=== PATIENT | female | born 1995 | race Caucasian/White ===

== ENCOUNTER → 2020-10-14 | Outpatient (REF) | payer OTHER | LOC: M SFHCADAM 17:07 | PROVIDERS: ATTEND Physician Assistant Medical | DX: Z12.4 Encounter for screening for malignant neoplasm of cervix (principal) ==

== ENCOUNTER → 2021-05-23 | Outpatient (REF) | payer OTHER ==
[2021-05-24 18:09] LABS: GC DNA AMPLIFICATION NEGATIVE (NEGATIVE)
== END ==
LOC: M SFHCADAM 14:48
PROVIDERS: ATTEND Physician Assistant Medical
DX: Z71.1 Person with feared health complaint in whom no diagnosis is made (principal); E66.01 Morbid (severe) obesity due to excess calories; R60.1 Generalized edema

== ENCOUNTER → 2021-05-24 | Outpatient (REF) | payer OTHER ==
[2021-05-24 13:32] LABS: HEMATOCRIT 41.7 % (36.0-47.0); MEAN CORPUSCULAR HGB CONC 33.6 g/dl (32.0-36.5); MEAN CORPUSCULAR VOLUME 86.5 fl (80.0-96.0); PLATELET COUNT, AUTOMATED 210 10^3/uL (150-450); RED BLOOD COUNT 4.82 10^6/uL (4.00-5.40); WHITE BLOOD COUNT 6.6 10^3/uL (4.0-10.0)
[2021-05-24 14:22] LABS: ALT/SGPT 90 U/L (12-78); BILIRUBIN,TOTAL 0.4 MG/DL (0.2-1.0); BLOOD UREA NITROGEN 11 MG/DL (7-18); CALCIUM LEVEL 9.2 MG/DL (8.5-10.1); CARBON DIOXIDE LEVEL 26 MEQ/L (21-32); CHLORIDE LEVEL 106 MEQ/L (98-107); CREATININE FOR GFR 0.76 MG/DL (0.55-1.30); GLOMERULAR FILTRATION RATE > 60.0 (>60); GLUCOSE, FASTING 93 MG/DL (70-100); POTASSIUM SERUM 4.3 MEQ/L (3.5-5.1); SODIUM LEVEL 138 MEQ/L (136-145); TRIGLYCERIDES LEVEL 167 MG/DL (<150)
[2021-05-24 14:23] LABS: ALBUMIN 4.2 GM/DL (3.2-5.2); CHOLESTEROL LEVEL 217 MG/DL (<200); CHOLESTEROL RISK RATIO 3.013 (<5); HDL CHOLESTEROL 72 MG/DL (>40); LDL CHOLESTEROL 112 MG/DL (<100); NON-HDL-C 145 MG/DL; TOTAL 25(OH) VITAMIN D 23.6 NG/ML (30.0-100.0); TOTAL PROTEIN 7.4 GM/DL (6.4-8.2)
[2021-05-25 12:39] LABS: GC DNA AMPLIFICATION NEGATIVE (NEGATIVE)
== END ==
LOC: M SFHCADAM 08:15
PROVIDERS: ATTEND Physician Assistant Medical
DX: Z71.1 Person with feared health complaint in whom no diagnosis is made (principal); E66.01 Morbid (severe) obesity due to excess calories; R60.1 Generalized edema

== ENCOUNTER → 2021-06-13 | Outpatient (CLI) | payer OTHER | LOC: M RAD 08:23 | PROVIDERS: ATTEND Physician Assistant Medical | DX: R74.8 Abnormal levels of other serum enzymes (principal); K76.0 Fatty (change of) liver, not elsewhere classified ==

== ENCOUNTER → 2021-06-15 | Outpatient (REF) | payer OTHER ==
[2021-06-15 13:51] LABS: ALBUMIN 4.2 GM/DL (3.2-5.2); ALT/SGPT 161 U/L (12-78); BILIRUBIN,TOTAL 0.5 MG/DL (0.2-1.0); BLOOD UREA NITROGEN 14 MG/DL (7-18); CALCIUM LEVEL 9.9 MG/DL (8.5-10.1); CARBON DIOXIDE LEVEL 26 MEQ/L (21-32); CHLORIDE LEVEL 108 MEQ/L (98-107); CREATININE FOR GFR 0.77 MG/DL (0.55-1.30); GLOMERULAR FILTRATION RATE > 60.0 (>60); GLUCOSE, FASTING 97 MG/DL (70-100); POTASSIUM SERUM 4.3 MEQ/L (3.5-5.1); SODIUM LEVEL 140 MEQ/L (136-145); TOTAL PROTEIN 7.7 GM/DL (6.4-8.2)
[2021-06-15 14:01] LABS: HEPATITIS B SURFACE ANTIGEN NEGATIVE (NEGATIVE)
[2021-06-15 14:29] LABS: HEPATITIS C VIRUS ABY INDEX 0.1 INDEX (<0.8)
[2021-06-15 14:31] LABS: HEPATITIS A ANTIBODY IGM NEGATIVE (NEGATIVE); HEPATITIS B CORE ANTIBODY IGM NEGATIVE (NEGATIVE)
== END ==
LOC: M SFHCADAM 07:51
PROVIDERS: ATTEND Physician Assistant Medical
DX: R74.8 Abnormal levels of other serum enzymes (principal)

== ENCOUNTER → 2021-06-21 | Outpatient (CLI) | payer OTHER ==
[~2021-06-21] MED LIST: ISOVUE-370 76% 100ML VIAL As Ordered ONE
--- NOTE | 2021-06-21 23:01 | REP ---
INDICATION: ABN LIVER IMAG ON US. COMPARISON: None TECHNIQUE: Axial pre and postcontrast images of the abdomen using 100 cc Isovue 370 intravenous contrast material. . This CT examination was performed using the following dose reduction techniques: Automated exposure control, adjustment of mA and/or kv according to the patient's size, and the use of iterative reconstruction technique. FINDINGS: Liver demonstrates significant diffuse fatty infiltration with a 1.1 cm round nonspecific area along the periphery of the right lobe (series 301; image 17) and a similar appearing 1.2 cm area in the lateral left lobe (series 301; image 39). These findings are nonspecific but appear benign and likely represent small focal areas of fat sparing. Spleen, pancreas, gallbladder, bilateral adrenal glands and kidneys are normal. Visualized portions of the enteric system are normal.. No ascites. No free air. No intraperitoneal or retroperitoneal adenopathy. Abdominal aorta and vasculature appear normal. Musculoskeletal structures are intact and without acute osseous abnormality. IMPRESSION: Diffuse significant hepatosteatosis with presumed small focal areas of fat sparing similar to findings on prior ultrasound. <Electronically signed by Ranjith Cuello > 06/21/21 [id number]
== END ==
LOC: M RAD 16:46
PROVIDERS: ATTEND Physician Assistant Medical
DX: R93.2 Abnormal findings on diagnostic imaging of liver and biliary tract (principal); K76.0 Fatty (change of) liver, not elsewhere classified
CPT/HCPCS: 74170; Q9967

== ENCOUNTER → 2021-09-26 | Outpatient (REF) | payer OTHER ==
[2021-09-26 14:24] LABS: ALBUMIN 4.3 GM/DL (3.2-5.2); ALT/SGPT 47 U/L (12-78); BILIRUBIN,TOTAL 0.8 MG/DL (0.2-1.0); BLOOD UREA NITROGEN 14 MG/DL (7-18); CALCIUM LEVEL 9.7 MG/DL (8.5-10.1); CARBON DIOXIDE LEVEL 27 MEQ/L (21-32); CHLORIDE LEVEL 107 MEQ/L (98-107); CREATININE FOR GFR 0.96 MG/DL (0.55-1.30); GLOMERULAR FILTRATION RATE > 60.0 (>60); GLUCOSE, FASTING 97 MG/DL (70-100); POTASSIUM SERUM 4.4 MEQ/L (3.5-5.1); SODIUM LEVEL 140 MEQ/L (136-145); TOTAL PROTEIN 7.9 GM/DL (6.4-8.2)
== END ==
LOC: M SFHCADAM 08:06
PROVIDERS: ATTEND Physician Assistant Medical
DX: K76.0 Fatty (change of) liver, not elsewhere classified (principal); R79.89 Other specified abnormal findings of blood chemistry; E66.01 Morbid (severe) obesity due to excess calories

== ENCOUNTER → 2021-12-02 | Outpatient (REF) | payer OTHER | LOC: M SFHCWAGY 08:34 | PROVIDERS: ATTEND Physician Assistant Medical | DX: Z12.4 Encounter for screening for malignant neoplasm of cervix (principal); R87.610 Atypical squamous cells of undetermined significance on cytologic smear of cervix (ASC-US) | CPT/HCPCS: 87624; G0123 ==

== ENCOUNTER → 2022-08-16 | Outpatient (REF) | payer OTHER ==
[2022-08-16 14:29] LABS: BASO % 0.4 % (0.0-1.0); EOS # 0.2 10^3/uL (0.0-0.5); HEMATOCRIT 39.5 % (36.0-47.0); LYMPH # 1.7 10^3/uL (1.5-5.0); MEAN CORPUSCULAR HEMOGLOBIN 28.6 pg (27.0-33.0); MEAN CORPUSCULAR HGB CONC 32.9 g/dl (32.0-36.5); MEAN CORPUSCULAR VOLUME 86.8 fl (80.0-96.0); MONO # 0.5 10^3/uL (0.0-0.8); MONO % 9.6 % (2.0-8.0); NEUTROPHILS # 2.6 10^3/uL (1.5-8.5); NEUTROPHILS % 51.8 % (36.0-66.0); PLATELET COUNT, AUTOMATED 233 10^3/uL (150-450); RED BLOOD COUNT 4.55 10^6/uL (4.00-5.40); WHITE BLOOD COUNT 4.9 10^3/uL (4.0-10.0)
[2022-08-16 15:15] LABS: ALT/SGPT 24 U/L (12-78); BILIRUBIN,TOTAL 0.6 MG/DL (0.2-1.0); BLOOD UREA NITROGEN 11 MG/DL (7-18); CALCIUM LEVEL 9.2 MG/DL (8.5-10.1); CARBON DIOXIDE LEVEL 25 MEQ/L (21-32); CHLORIDE LEVEL 111 MEQ/L (98-107); CREATININE FOR GFR 0.76 MG/DL (0.55-1.30); GLOMERULAR FILTRATION RATE > 60.0 (>60); GLUCOSE, FASTING 86 MG/DL (70-100); POTASSIUM SERUM 3.8 MEQ/L (3.5-5.1); SODIUM LEVEL 141 MEQ/L (136-145); TOTAL PROTEIN 7.4 GM/DL (6.4-8.2)
[2022-08-16 16:00] LABS: TOTAL 25(OH) VITAMIN D 29.6 NG/ML (30.0-100.0)
== END ==
LOC: M SFHCADAM 11:24
PROVIDERS: ATTEND Physician Assistant Medical
DX: F32.2 Major depressive disorder, single episode, severe without psychotic features (principal); F41.0 Panic disorder [episodic paroxysmal anxiety]; E55.9 Vitamin D deficiency, unspecified

== ENCOUNTER 2023-08-04 14:26 | Inpatient (IN) | payer BC, OTHER ==
[~2023-08-04] VITALS: Ht 162.6 cm; Wt 83.9 kg
[2023-08-04 15:44] LABS: MEAN CORPUSCULAR HEMOGLOBIN 28.6 pg (27.0-33.0); MEAN CORPUSCULAR HGB CONC 35.1 g/dl (32.0-36.5); MEAN CORPUSCULAR VOLUME 81.3 fl (80.0-96.0); PLATELET COUNT, AUTOMATED 313 10^3/uL (150-450); RED BLOOD COUNT 4.55 10^6/uL (4.00-5.40); WHITE BLOOD COUNT 12.2 10^3/uL (4.0-10.0)
[2023-08-04 16:07] LABS: ETHYL ALCOHOL (ETHANOL) < 0.003 % (0.000-0.010)
[2023-08-04 16:08] LABS: ACETAMINOPHEN LEVEL < 2.0 UG/ML (10.0-20.0); ALBUMIN 4.6 G/DL (3.2-5.2); ALKALINE PHOSPHATASE 63 U/L (46-116); ALT/SGPT 15 U/L (7.0-40); AST/SGOT 14 U/L (<34); BILIRUBIN,DIRECT 0.2 MG/DL (<0.4); BILIRUBIN,TOTAL 0.5 MG/DL (0.3-1.2); BLOOD UREA NITROGEN 12 MG/DL (9-23); CALCIUM LEVEL 9.3 MG/DL (8.5-10.1); CARBON DIOXIDE LEVEL 20 MMOL/L (20-31); CHLORIDE LEVEL 111 MMOL/L (98-107); GLOMERULAR FILTRATION RATE > 60.0 (>60); GLUCOSE, FASTING 122 MG/DL (60-100); POTASSIUM SERUM 3.6 MMOL/L (3.5-5.1); SALICYLATE LEVEL < 3.0 MG/DL (<30); SODIUM LEVEL 143 MMOL/L (136-145); TOTAL PROTEIN 8.2 G/DL (5.7-8.2)
[2023-08-04 16:10] LABS: THYROID STIMULATING HORMONE 0.877 uIU/ML (0.55-4.78)
[2023-08-04 16:19] LABS: HCG, SERUM QUALITATIVE NEGATIVE (NEGATIVE)
[2023-08-04] MEDS ORDERED: LORazepam 2 MG/ML 1ML VIAL IM STA ×2 (16:22→21:39)
[2023-08-04] MEDS ORDERED: OLANZapine INTRAMUSCULAR 10MG VIAL IM ONE ×2 (16:25→23:00)
[2023-08-04 18:20] LABS: AMPHETAMINES LEVEL URINE NEGATIVE (NEGATIVE); BARBITURATES URINE NEGATIVE (NEGATIVE); COCAINE METABOLITE URINE NEGATIVE (NEGATIVE); METHADONE URINE NEGATIVE (NEGATIVE)
[2023-08-04 18:21] LABS: OPIATES URINE NEGATIVE (NEGATIVE); PHENCYCLIDINE URINE NEGATIVE (NEGATIVE)
[2023-08-04 18:24] LABS: BENZODIAZEPINES URINE POSITIVE (NEGATIVE); CANNABINOIDS URINE POSITIVE (NEGATIVE)
[2023-08-04] MEDS ORDERED: NORE0.353 PO (19:10)
[2023-08-04] MEDS ORDERED: HOME MED LIST COMPLETE! XX SCH (19:10)
[2023-08-04] MEDS ORDERED: BUPR75TA5 PO (19:10)
[2023-08-04] MEDS ORDERED: ZOLO100T PO (19:10)
[2023-08-05] MEDS ORDERED: OLANZapine INTRAMUSCULAR 10MG VIAL IM ONE (06:05)
[2023-08-05] MEDS ORDERED: LORazepam 2 MG TAB PO STA (13:32)
[2023-08-05] MEDS ORDERED: OLANZapine ORAL DISINTEGRATING TAB 5MG PO ONE (13:35)
[2023-08-05] MEDS: OLANZapine ORAL DISINTEGRATING TAB 5MG PO PRN (19:25)
[2023-08-05] MEDS: LORazepam 1 MG TAB PO PRN (19:25)
[2023-08-06] MEDS ORDERED: UNRESOLVED PATIENT OWN MED ORDER XX SCH (00:01)
[2023-08-06] MEDS: LORazepam 1 MG TAB PO PRN ×2 (03:36→11:02)
[2023-08-06] MEDS: OLANZapine ORAL DISINTEGRATING TAB 5MG PO PRN ×2 (03:36→11:03)
[2023-08-06] MEDS ORDERED: SERTRALINE 100 MG TAB PO ONE (09:00)
[2023-08-06 18:03] VITALS: BP 131/86; TEMP 98.6; O2SAT 98
[2023-08-06] MEDS: SERTRALINE 100 MG TAB PO SCH (18:09)
[2023-08-06] MEDS ORDERED: HALOPERIDOL 5MG/ML 1ML VIAL IM STA (19:00)
[2023-08-06] MEDS ORDERED: LORazepam 2 MG/ML 1ML VIAL IM STA (19:00)
[2023-08-06] MEDS ORDERED: diphenhydrAMINE 50MG/ML VIAL IM STA (19:00)
[2023-08-06 19:45] VITALS: BP 127/75; TEMP 97.6; O2SAT 96
[2023-08-06 20:00] VITALS: BP 121/75; TEMP 97.3; O2SAT 96
[2023-08-06 20:15] VITALS: BP 120/59; TEMP 97.3; O2SAT 94
[2023-08-06 20:30] VITALS: BP 122/71; TEMP 97.3; O2SAT 94
[2023-08-06 20:45] VITALS: BP 109/63; TEMP 97.3; O2SAT 94
[2023-08-06] MEDS ORDERED: LORazepam 1 MG TAB PO ONE (22:00)
[2023-08-06] MEDS ORDERED: OLANZapine ORAL DISINTEGRATING TAB 5MG PO ONE (22:00)
[2023-08-07] MEDS: buPROPion 75 MG TAB PO SCH (09:00)
[2023-08-07] MEDS ORDERED: NORETHINDRONE 0.35 MG PO SCH (09:00)
[2023-08-07] MEDS: SERTRALINE 100 MG TAB PO SCH (09:34)
[2023-08-07] MEDS: OLANZapine 2.5MG TABLET PO SCH ×2 (10:27→21:00)
[2023-08-07] MEDS ORDERED: LORazepam 2 MG TAB PO ONE (11:00)
[2023-08-07] MEDS ORDERED: diphenhydrAMINE 50MG CAP PO ONE (11:00)
[2023-08-07] MEDS: NICOTINE 7 MG/24 HR TRANSDERMAL TD PRN (11:35)
[2023-08-07 11:40] VITALS: BP 120/74; TEMP 97.8; O2SAT 97
[2023-08-07 11:45] VITALS: BP 120/74; TEMP 97.8; O2SAT 97
[2023-08-07 12:10] VITALS: BP 112/67; TEMP 97.4
[2023-08-07] MEDS ORDERED: OLANZapine ORAL DISINTEGRATING TAB 5MG PO PRN (13:30)
[2023-08-08 06:25] VITALS: BP 129/87; TEMP 98.1; O2SAT 97
[2023-08-08] MEDS ORDERED: LORazepam 2 MG TAB PO STA (08:59)
[2023-08-08] MEDS ORDERED: diphenhydrAMINE 50MG CAP PO STA (08:59)
[2023-08-08] MEDS: LORazepam 1 MG TAB PO SCH ×3 (09:00→21:40)
[2023-08-08] MEDS: SERTRALINE 100 MG TAB PO SCH (09:07)
[2023-08-08] MEDS: buPROPion 75 MG TAB PO SCH (09:07)
[2023-08-08 16:12] VITALS: BP 112/78; TEMP 97.9; O2SAT 99
[2023-08-09 06:20] VITALS: BP 129/85; TEMP 98.7; O2SAT 100
[2023-08-09] MEDS: SERTRALINE 100 MG TAB PO SCH (08:38)
[2023-08-09] MEDS: buPROPion 75 MG TAB PO SCH (08:38)
[2023-08-09] MEDS: LORazepam 1 MG TAB PO SCH ×3 (08:38→22:02)
[2023-08-09] MEDS: NICOTINE 7 MG/24 HR TRANSDERMAL TD PRN (15:55)
[2023-08-09 18:20] VITALS: BP 120/86; TEMP 97.8; O2SAT 100
[2023-08-10 06:57] VITALS: BP 146/78; TEMP 97.3; O2SAT 95
[2023-08-10] MEDS: buPROPion 75 MG TAB PO SCH (07:47)
[2023-08-10] MEDS: LORazepam 1 MG TAB PO SCH ×3 (07:47→22:18)
[2023-08-10] MEDS: NICOTINE 7 MG/24 HR TRANSDERMAL TD PRN (07:47)
[2023-08-10] MEDS: SERTRALINE 100 MG TAB PO SCH (07:47)
[2023-08-10 18:39] VITALS: BP 127/80; TEMP 98.1
[2023-08-11 06:33] VITALS: BP 127/90; TEMP 97.7; O2SAT 99
[2023-08-11] MEDS: NICOTINE 7 MG/24 HR TRANSDERMAL TD PRN (09:10)
[2023-08-11] MEDS: SERTRALINE 100 MG TAB PO SCH (09:11)
[2023-08-11] MEDS: buPROPion 75 MG TAB PO SCH (09:11)
[2023-08-11] MEDS: LORazepam 1 MG TAB PO SCH ×3 (09:12→20:50)
[2023-08-11 18:10] VITALS: BP 114/75; TEMP 98.7; O2SAT 96
[2023-08-12 05:52] VITALS: BP 132/79; TEMP 98.4; O2SAT 96
[2023-08-12] MEDS: DROSPIRENONE PO SCH (09:51)
[2023-08-12] MEDS: ETHINYL ESTRADIOL PO SCH (09:51)
[2023-08-12] MEDS: buPROPion 75 MG TAB PO SCH (09:53)
[2023-08-12] MEDS: SERTRALINE 100 MG TAB PO SCH (09:53)
[2023-08-12] MEDS: LORazepam 1 MG TAB PO SCH ×3 (09:53→21:59)
[2023-08-12] MEDS: NICOTINE 7 MG/24 HR TRANSDERMAL TD PRN (09:54)
[2023-08-12 18:00] VITALS: BP 129/84; TEMP 98; O2SAT 99
[2023-08-13 06:37] VITALS: BP 150/70; TEMP 97.7; O2SAT 96
[2023-08-13] MEDS: LORazepam 1 MG TAB PO SCH (08:31)
[2023-08-13] MEDS: ETHINYL ESTRADIOL PO SCH (08:31)
[2023-08-13] MEDS: DROSPIRENONE PO SCH (08:31)
[2023-08-13] MEDS: buPROPion 75 MG TAB PO SCH (08:31)
[2023-08-13] MEDS: SERTRALINE 100 MG TAB PO SCH (08:31)
[2023-08-13] MEDS: NICOTINE 7 MG/24 HR TRANSDERMAL TD PRN (08:32)
[2023-08-13] MEDS ORDERED: LORazepam 1 MG TAB PO PRN (10:05)
[2023-08-13 18:10] VITALS: BP 125/83; TEMP 97.5; O2SAT 95
[2023-08-14 06:39] VITALS: BP 126/83; TEMP 96.7; O2SAT 97
[2023-08-14] MEDS ORDERED: hydrOXYzine 50 MG TAB PO PRN (09:35)
[2023-08-14] MEDS: ETHINYL ESTRADIOL PO SCH (09:50)
[2023-08-14] MEDS: buPROPion 75 MG TAB PO SCH (09:50)
[2023-08-14] MEDS: DROSPIRENONE PO SCH (09:50)
[2023-08-14] MEDS: SERTRALINE 100 MG TAB PO SCH (09:51)
[2023-08-14] MEDS ORDERED: LORazepam 0.5 MG TAB PO ONE (10:00)
[2023-08-14] MEDS: busPIRone 5 MG TAB PO SCH ×2 (11:36→21:13)
[2023-08-14 16:06] VITALS: BP 132/78; TEMP 97.7; O2SAT 96
[2023-08-14] MEDS: LORazepam 1 MG TAB PO SCH (21:13)
[2023-08-15 06:41] VITALS: BP 113/67; TEMP 97.7; O2SAT 95
[2023-08-15] MEDS: DROSPIRENONE PO SCH (08:34)
[2023-08-15] MEDS: SERTRALINE 100 MG TAB PO SCH (08:34)
[2023-08-15] MEDS: busPIRone 5 MG TAB PO SCH ×2 (08:34→21:10)
[2023-08-15] MEDS: buPROPion 75 MG TAB PO SCH (08:34)
[2023-08-15] MEDS: ETHINYL ESTRADIOL PO SCH (08:34)
[2023-08-15] MEDS ORDERED: BUPR75TA5 PO (09:23)
[2023-08-15] MEDS ORDERED: ZOLO100T PO (09:23)
[2023-08-15] MEDS ORDERED: BUSP5TA PO (09:23)
[2023-08-15] MEDS ORDERED: NORE0.353 PO (09:23)
[2023-08-15] MEDS ORDERED: HALO5TAB33 PO (09:23)
[2023-08-15] MEDS ORDERED: SERTRALINE HCL 50 MG TAB PO ONE (10:00)
[2023-08-15 16:21] VITALS: BP 124/71; TEMP 96.2; O2SAT 100
[2023-08-15] MEDS: LORazepam 1 MG TAB PO SCH (21:10)
[2023-08-16 06:21] VITALS: BP 139/93; TEMP 98.6; O2SAT 94
[2023-08-16] MEDS: DROSPIRENONE PO SCH (09:07)
[2023-08-16] MEDS: SERTRALINE 100 MG TAB PO SCH (09:07)
[2023-08-16] MEDS: busPIRone 5 MG TAB PO SCH (09:07)
[2023-08-16] MEDS: ETHINYL ESTRADIOL PO SCH (09:07)
[2023-08-16] MEDS: buPROPion 75 MG TAB PO SCH (09:07)
== END 2023-08-16 12:04 | disposition home or self-care (01) | DRG 751 ==
LOC: M ED 14:26 → M ED INP 08-06 13:11 → M PSY 08-06 17:04
PROVIDERS: ADMIT Student in an Organized Health Care Education/Training Program; ATTEND Student in an Organized Health Care Education/Training Program
DX: F29 Unspecified psychosis not due to a substance or known physiological condition (principal); F41.9 Anxiety disorder, unspecified; F43.10 Post-traumatic stress disorder, unspecified; F17.200 Nicotine dependence, unspecified, uncomplicated; F12.90 Cannabis use, unspecified, uncomplicated; F15.90 Other stimulant use, unspecified, uncomplicated; Z59.89 Other problems related to housing and economic circumstances; Z79.899 Other long term (current) drug therapy

== ENCOUNTER → 2023-10-10 | Outpatient (REF) | payer BC, OTHER ==
[~2023-10-10] MED LIST changes: +BUPR75TA5 PO; +BUSP5TA PO; +HALO5TAB33 PO; -ISOVUE-370 76% 100ML VIAL As Ordered ONE; +NORE0.353 PO; +ZOLO100T PO
== END ==
LOC: M SFHCADAM 15:54
PROVIDERS: ATTEND Physician Assistant Medical
DX: Z12.4 Encounter for screening for malignant neoplasm of cervix (principal)

== ENCOUNTER → 2024-02-05 | Outpatient (REF) | payer OTHER ==
[2024-02-05 14:32] LABS: ALBUMIN 3.5 G/DL (3.2-5.2); ALKALINE PHOSPHATASE 36 U/L (46-116); ALT/SGPT 16 U/L (7.0-40); AST/SGOT 10 U/L (<34); BILIRUBIN,TOTAL 0.4 MG/DL (0.3-1.2); BLOOD UREA NITROGEN 14 MG/DL (9-23); CALCIUM LEVEL 9.3 MG/DL (8.5-10.1); CARBON DIOXIDE LEVEL 24 MMOL/L (20-31); CHLORIDE LEVEL 111 MMOL/L (98-107); CREATININE FOR GFR 1.01 MG/DL (0.55-1.30); GLOMERULAR FILTRATION RATE > 60.0 (>60); GLUCOSE, FASTING 93 MG/DL (60-100); POTASSIUM SERUM 4.3 MMOL/L (3.5-5.1); SODIUM LEVEL 139 MMOL/L (136-145); TOTAL PROTEIN 6.9 G/DL (5.7-8.2)
[2024-02-05 14:33] LABS: THYROID STIMULATING HORMONE 1.334 uIU/ML (0.55-4.78)
[2024-02-05 14:34] LABS: FOLATE 16.23 NG/ML (>5.4); TOTAL 25(OH) VITAMIN D 36.9 NG/ML (20.0-100.0); VITAMIN B12 LEVEL 347 PG/ML (211-911)
[2024-02-05 14:37] LABS: HEMATOCRIT 39.1 % (36.0-47.0); MEAN CORPUSCULAR HEMOGLOBIN 28.9 pg (27.0-33.0); MEAN CORPUSCULAR HGB CONC 33.2 g/dl (32.0-36.5); MEAN CORPUSCULAR VOLUME 86.9 fl (80.0-96.0); PLATELET COUNT, AUTOMATED 224 10^3/uL (150-450); WHITE BLOOD COUNT 4.8 10^3/uL (4.0-10.0)
[2024-02-05 14:44] LABS: HEMOGLOBIN A1c 4.8 % (4.0-6.0)
== END ==
LOC: M SFHCADAM 07:48
PROVIDERS: ATTEND Family Medicine
DX: F32.2 Major depressive disorder, single episode, severe without psychotic features (principal); F43.10 Post-traumatic stress disorder, unspecified; R53.83 Other fatigue

== ENCOUNTER → 2024-04-07 | Outpatient (REF) | payer OTHER ==
[2024-04-09 13:47] LABS: HPV APTIMA Not Detected (Not Detected)
== END ==
LOC: M PLALAB 15:49
PROVIDERS: ATTEND Obstetrics & Gynecology
DX: Z12.4 Encounter for screening for malignant neoplasm of cervix (principal)

== ENCOUNTER → 2024-12-19 | Outpatient (REF) | payer OTHER ==
[2024-12-19 14:34] LABS: HEPATITIS B SURFACE ANTIGEN NEGATIVE (NEGATIVE)
[2024-12-19 14:47] LABS: HIV 1&2 SCREEN NEGATIVE (NEGATIVE)
[2024-12-19 14:56] LABS: HEPATITIS B CORE ANTIBODY IGM NEGATIVE (NEGATIVE); HEPATITIS C VIRUS ABY INDEX 0.12 INDEX (<0.8)
== END ==
LOC: M LABDRWAD 12:51
PROVIDERS: ATTEND Obstetrics & Gynecology
DX: Z20.2 Contact with and (suspected) exposure to infections with a predominantly sexual mode of transmission (principal)

== ENCOUNTER → 2025-09-01 | Outpatient (REF) | payer OTHER ==
[~2025-09-01] MED LIST changes: +BUPR-363 PO; -BUPR75TA5 PO
[2025-09-01 18:40] LABS: FREE T4 1.02 NG/DL (0.89-1.76)
[2025-09-01 18:43] LABS: ALT/SGPT 57 U/L (7.0-40); AST/SGOT 33 U/L (<34); CALCIUM LEVEL 9.3 MG/DL (8.5-10.1); CARBON DIOXIDE LEVEL 24 MMOL/L (20-31); CHLORIDE LEVEL 108 MMOL/L (98-107); CHOLESTEROL LEVEL 192 MG/DL (<200); CHOLESTEROL RISK RATIO 3.77 (<5); CREATININE FOR GFR 0.80 MG/DL (0.55-1.30); GLOMERULAR FILTRATION RATE > 90.0 (>60); LDL CHOLESTEROL 109.7 MG/DL (<100); NON-HDL-C 141.1 MG/DL; POTASSIUM SERUM 4.7 MMOL/L (3.5-5.1); SODIUM LEVEL 143 MMOL/L (136-145); TRIGLYCERIDES LEVEL 157 MG/DL (<150)
[2025-09-01 18:53] LABS: PLATELET COUNT, AUTOMATED 302 10^3/uL (150-450)
[2025-09-01 19:09] LABS: ESTIMATED AVERAGE GLUCOSE 91.0 MG/DL (60-110)
== END ==
LOC: M SFHCADAM 11:33
PROVIDERS: ATTEND Family Medicine
DX: K76.0 Fatty (change of) liver, not elsewhere classified (principal); E66.01 Morbid (severe) obesity due to excess calories